=== PATIENT | female | born 1945 | race Caucasian/White ===

== ENCOUNTER 2020-07-27 14:50 | Emergency (ER) | payer OTHER, SELFPAY ==
[2020-07-27 14:54] VITALS: BP 189/84; PULSE 67; RESP 15; TEMP 36.8; O2SAT 98; BMI 42.7
--- NOTE | 2020-07-27 15:04 | DI.RAD.S_ITS ---
PROCEDURE: XR SACRUM COCCYX MIN 2V INDICATIONS: fell onto butt TECHNIQUE: 3 views of the sacrum and coccyx acquired. COMPARISON: None. FINDINGS: Bones: No fractures or dislocations. No suspicious bony lesions. There is partial visualization of right hip arthroplasty hardware. Degenerative changes are seen involving the visualized lower lumbar spine, sacroiliac joints, and the left hip. Soft tissues: Visualized bowel gas pattern is normal. No suspicious soft tissue densities. IMPRESSION: No acute fractures are seen. Postoperative and degenerative changes are seen. Dictated by: Edmond Wong M.D. on 07/27/2020 at 14:23 Approved by: Edmond Wong M.D. on 07/27/2020 at 14:24
--- NOTE | 2020-07-27 18:16 | PC.NURSE ---
Reports headache and eyes feel like they are going to pop out of my head when I try to concentrate on something. Slight raised area on left back of head, no bruising or redness observed.
--- NOTE | 2020-07-27 18:40 | ED_ITS ---
HPI - Fall General Chief Complaint: Fall Stated Complaint: FELL HIT HEAD AND TALE BONE NAUSEA Time Seen by Provider: 07/27/20 18:39 Source: patient Mode of arrival: Ambulatory Limitations: no limitations History of Present Illness HPI Narrative: Patient is a 75-year-old female who presents with buttock pain after a fall. She states she had a mechanical fall slipping on ice trying to prevent a CT from escaping mom. He says she landed directly on her bottom but fell back and hit her head. She did not lose consciousness she is not on any anti-platelet or intake coagulation medication. Complaining of only midline buttock pain. She has no numbness tingling or other symptoms. The nursing hotline advised her not to take any pain medication and to come directly to the emergency department MD complaint: fall Onset (ago): hour(s) Fall from: standing Fall witnessed: no Place fall occurred: home Loss of consciousness: none Related Data Previous Rx's Medication Instructions Recorded hydrocodone-acetaminophen 1 tab PO Q6H PRN #10 tab 07/27/20 Allergies Allergy/AdvReac Type Severity Reaction Status Date / Time No Known Drug Allergies Allergy Verified 07/27/20 14:56 Review of Systems Review of Systems Narrative: GENERAL: Denies chills,fever HEENT: Denies throat pain RESPIRATORY: Denies dyspnea, cough, wheezing CARDIOVASCULAR: Denies chest pain, palpitations GASTROINTESTINAL: Denies nausea, vomiting MUSCULOSKELETAL: See HPI SKIN: No rash, no laceration, no pruritus NEUROLOGIC: Denies weakness, dizziness, headache, numbness 8 point review of systems is negative except for those stated above and HPI Patient History Medical History Uterine cancer Surgical History H/O gastric bypass Social History Smoking Status: Unknown if ever smoked Smoking Status: Unknown if ever smoked alcohol intake frequency: holidays/special occasions only Substance Use Type: does not use Exam Initial Vital Signs Initial Vital Signs: Vital Signs Temperature 98.2 F 07/27/20 14:54 Pulse Rate 67 07/27/20 14:54 Respiratory Rate 15 07/27/20 14:54 Blood Pressure 189/84 H 07/27/20 14:54 Pulse Oximetry 98 07/27/20 14:54 GENERAL: Alert pleasant 75-year-old female BMI greater 42, no acute distress HEENT: Head atraumatic,EOMI, pupils reactive, face symmetric, [moist] mucous membranes NECK: No midline is tenderness full flexion extension and rotation CARDIOVASCULAR: Regular rate and rhythm without murmurs, rubs or gallops. RESPIRATORY: Breath sounds equal bilaterally, no wheezes rales or rhonchi. BACK: No vertebral tenderness no step-off. Tender in sacral area EXTREMITIES: Normal range of motion, no clubbing or edema. Neurovascularly intact NEUROLOGICAL: Alert and oriented x4.Normal gait and speech. SKIN: Warm, dry, no laceration, no petechiae, no rashes or lesions. Course Orders Ordered: ED Orders 07/27/20 15:04 XR sacrum coccyx min 2V Stat Vital Signs Vital signs: Vital Signs - 8 hr 07/27/20 14:54 Temperature 98.2 F Pulse Rate 67 Respiratory Rate 15 Blood Pressure 189/84 H Pulse Oximetry 98 MDM - Fall Imaging Data Extremity x-ray #1: Radiologist's Impression: PROCEDURE: XR SACRUM COCCYX MIN 2V INDICATIONS: fell onto butt TECHNIQUE: 3 views of the sacrum and coccyx acquired. COMPARISON: None. FINDINGS: Bones: No fractures or dislocations. No suspicious bony lesions. There is partial visualization of right hip arthroplasty hardware. Degenerative changes are seen involving the visualized lower lumbar spine, sacroiliac joints, and the left hip. Soft tissues: Visualized bowel gas pattern is normal. No suspicious soft tissue densities. IMPRESSION: No acute fractures are seen. Postoperative and degenerative changes are seen. Dictated by: Edmond Wong M.D. on 07/27/2020 at 14:23 Approved by: Edmond Wong M.D. on 07/27/2020 at 14:2 Discharge Plan Departure Patient Disposition: Home Clinical Impression: Contusion of sacral region Qualifiers: Encounter type: initial encounter Qualified Code(s): S30.0XXA - Contusion of lower back and pelvis, initial encounter Instructions: Contusion Activity Restrictions/Additional Instructions: *You have been diagnosed with sacral contusion *What to do: This may her for few weeks. Do not use a doughnut but use soft pillows and cushions to sit. *Continue to take medications as directed [place] 1 tablet every 6 hours if needed for severe pain--> SENT TO [facility] Tylenol 650 mg every 4-6 hours please be careful when combining with [place]-see instructions below *Follow up with your primary care provider in 2-3 days *Return to ER if you should have increasing pain, numbness, tingling or any new, worsening or concerning symptoms CONTROLLED SUBSTANCE DISCHARGE (NARCOTOIC/BENZODIAZEPINE/FLEXERIL/PHENERGAN) 1. YOU HAVE BEEN PRESCRIBED NARCOTIC MEDICATIONS, IT DOES HAVE ACETAMINOPHEN/TYLENOL/PARACETAMOL IN IT, DO NOT TAKE MORE THAN 4,00MG IN 24 HOURS OF TYLENOL. TRAMADOL DOES NOT CONTAIN TYLENOL 2. PLEASE UNDERSTAND THAT WE CANNOT PROVIDE FURTHER REFILLS OF NARCOTICS, BENZODIAZEPINES OR CONTROLLED SUBSTANCES THROUGH THE ED AND HER PAIN MANAGEMENT WILL NEED TO BE THROUGH YOUR PROVIDER. 3. WHILE ON THESE MEDICATIONS YOU CANNOT DRIVE OR OPERATE HEAVY MACHINERY. 4. YOU CANNOT SIGN LEGAL DOCUMENTS OR PERFORM ANY DUTIES SUCH THIS. 5. LONG YOU'RE TAKING OPIATE PAIN MEDICATIONS HE SHOULD ALSO BE TAKING A STOOL SOFTENER SUCH COLACE, DULCOLAX, MIRALAX OR PRUNE JUICE, TO HELP AVOID CONSTIPATION. Prescriptions: New hydrocodone-acetaminophen 5-325 mg tablet 1 tab PO Q6H PRN (Reason: pain) Qty: 10 RF: 0 Referrals: Awais Bonner MD [Primary Care Provider] -
[2020-07-27 19:12] VITALS: BP 172/77; PULSE 69; O2SAT 97
== END 2020-07-27 19:11 | disposition home or self-care (01) ==
PROVIDERS: Emergency Provider Emergency Medicine; PCP Family Medicine
DX: S30.0XXA Contusion of lower back and pelvis, initial encounter (principal); S09.90XA Unspecified injury of head, initial encounter; W01.0XXA Fall on same level from slipping, tripping and stumbling without subsequent striking against object, initial encounter
CPT/HCPCS: 72220; 99281; 99283